=== PATIENT | female | born 1960 | race Caucasian/White ===

== ENCOUNTER → 2016-11-20 | Outpatient (CLI) | payer BC | LOC: FIMAGING 09:40 | PROVIDERS: ATTEND Orthopaedic Surgery | DX: Z01.818 Encounter for other preprocedural examination (principal); M17.12 Unilateral primary osteoarthritis, left knee; M25.462 Effusion, left knee ==

== ENCOUNTER 2016-12-04 06:52 | Observation (INO) | payer BC ==
[~2016-12-04 06:52] MED LIST: ACETAMINOPHEN 325 MG TAB PO ONE; CEFAZOLIN 2 GM/DEXTR 100 ML IV ONE; CHLORHEXIDINE GLUC HIBICLENS 118 ML BTL TP ONE; DEXAMETHASONE 4 MG/ML VIAL IVP ONE; FAMOTIDINE 20 MG TAB PO ONE; ROPI/epiNEPH/KETOROLAC JOINT COCKTAIL IU ONE; TRANEXAMIC ACID 3,000 MG in NS 50 ML IRR ONE
[2016-12-04] MEDS ORDERED: LIDOCAINE 2% 5 ML SDV ONE (07:20)
[2016-12-04] MEDS ORDERED: TRANEXAMIC ACID 3,000 MG/50 ML BAG IRR ONE (07:30)
[2016-12-04] MEDS ORDERED: SKIN ADHESIVE (DERMABOND) 1 EACH TP ONE (07:30)
[2016-12-04] MEDS ORDERED: VANCOMYCIN 1 GM VIAL IV ONE (07:30)
[2016-12-04] MEDS ORDERED: MIDAZOLAM 2 MG/2 ML VIAL ONE (09:07)
[2016-12-04] MEDS ORDERED: fentaNYL 100 MCG/2 ML INJ ONE ×3 (09:10→10:57)
[2016-12-04] MEDS ORDERED: PROPOFOL/EMULSION 500 MG/50 ML BOTTLE IV ONE ×2 (09:11→10:05)
[2016-12-04] MEDS ORDERED: LACTULOSE 20 GM/30 ML UDCUP PO PRN (10:50)
[2016-12-04] MEDS ORDERED: TEMAZEPAM 15 MG CAP PO PRN (10:50)
[2016-12-04] MEDS ORDERED: DIPHENOXYLATE/ATROPINE LOMOTIL 1 TAB PO PRN (10:50)
[2016-12-04] MEDS ORDERED: POLYETHYLENE GLYCOL 3350 17 GM PKT PO PRN (10:50)
[2016-12-04] MEDS ORDERED: PROMETHAZINE HCL 25 MG SUPPR PR PRN (10:50)
[2016-12-04] MEDS ORDERED: diphenhydrAMINE 25 MG CAP PO PRN (10:50)
[2016-12-04] MEDS ORDERED: oxyCODONE IR 5 MG TAB PO PRN (10:50)
[2016-12-04] MEDS ORDERED: CYCLOBENZAPRINE 10 MG TAB PO PRN (10:50)
[2016-12-04] MEDS ORDERED: BISACODYL 10 MG SUPP PR PRN (10:50)
[2016-12-04] MEDS ORDERED: PHARMACY PAIN CONSULT 1 EA MISC PRN (10:50)
[2016-12-04] MEDS ORDERED: METOCLOPRAMIDE 10 MG/2 ML VIAL IVP PRN (10:50)
[2016-12-04] MEDS ORDERED: MAGNESIUM HYDROXIDE 30 ML UDCUP PO PRN (10:50)
[2016-12-04] MEDS ORDERED: ONDANSETRON 4 MG/2 ML VIAL IVP PRN (10:50)
[2016-12-04] MEDS ORDERED: ONDANSETRON DISINTEGRATING 4 MG TAB PO PRN (10:50)
--- NOTE | 2016-12-04 10:50 | POSTOPPROG ---
Post Op Note Date of Operation: 12/04/16 Surgeon: Vick Hansen Electronic Assembler Group Leader: denys hansen Anesthesiologist: dr. alvares Anesthesia: Spinal, Other (Specify) (adductor canal block) Pre-op Diagnosis: left knee OA Post-op Diagnosis: same Indication: left knee pain due to OA that failed conservative measures Procedure: L medial partial knee arthroplasty robot assisted Findings: severe medial knee OA Inf/Abcess present in the surg proc area at time of surgery?: No EBL: 50-100
[2016-12-04] MEDS ORDERED: LR 1,000 ML IV SCH (11:00)
[2016-12-04] MEDS ORDERED: ONDANSETRON 4 MG/2 ML VIAL ONE (11:02)
[2016-12-04] MEDS ORDERED: DEXAMETHASONE 4 MG/ML VIAL ONE (11:02)
[2016-12-04] MEDS ORDERED: PROMETHAZINE HCL 25 MG/ML INJ ONE (11:25)
[2016-12-04] MEDS: ACETAMINOPHEN 325 MG TAB PO SCH ×3 (17:35→22:45)
[2016-12-04] MEDS: ceFAZolin 2 GM/DEXTROSE 100 ML IV SCH ×2 (17:46→20:30)
--- NOTE | 2016-12-04 19:37 | GOP ---
[f rep st] OPERATIVE REPORT DATE OF OPERATION: 12/04/2016 SURGEON: Sylwia Hernandez MD HAND GLUER AND SLICER: Geneva Hernandez PA-C. ANESTHESIA: Spinal. PREOPERATIVE DIAGNOSIS: Left knee osteoarthritis. POSTOPERATIVE DIAGNOSIS: Left knee osteoarthritis. PROCEDURE PERFORMED: FINDINGS: ESTIMATED BLOOD LOSS: 30 cc. INDICATIONS: This is a 56-year-old female with progressive pain of the left knee unresponsive to co nservative care. Risks and benefits of surgical intervention were explained in detail. DESCRIPTION OF PROCEDURE: The patient was brought to the operating room and placed on the table in supine position. Spinal anesthesia was induced without difficulty. A pneumatic tourniquet was appl ied about the left proximal thigh and the leg was prepped and draped in sterile fashion. Attention was turned first to the distal aspect of the left femur. At 3 cm proximal to the lateral rise of th e femur, 2 percutaneous half pins were placed for fixation of the femoral array. In a similar fashi on, 2 pins were placed anterolateral on the tibia for fixation of the tibial array. External land m arking and registration of the hip center was performed without difficulty. After exsanguination by elevation, the tourniquet was inflated to 250 mmHg. Incision was made from the tibial tuberosity to the superior pole of the patella. Dissection was ca rried out through the subcutaneous tissue to the deep fascia using Bovie electrocautery for hemostas is. Medial parapatellar arthrotomy was carried out to the superior pole of the patella. The medial collateral ligament was elevated and the infrapatellar fat pad was resected. Internal femoral and tibial registration was carried out without difficulty and the femoral and tibial checkpoints were p laced and verified for accuracy. Attention was turned to the femur. The foot print for the size 4 femoral component was cut with the 6 mm bur using the Flukle robotic system and verified for accuracy against the CT based plan. The hol e was cut for the femoral post. In a similar fashion, the 6 mm bur was used to cut the foot print fo r the size 4 tibial component using the ERIK system and verified for accuracy against the CT based pl an. Attention was turned to the posterior aspect of the knee and remnants of the medial meniscus were ex cised. The posterior capsule was injected with ropivacaine, epinephrine and Toradol. Trial reducti on was carried out and there was excellent range of motion, alignment and stability using the size 4 femoral component and the size 4 tibial component. All trials were then removed. The joint was thoroughly irrigated and carefully dried. One package of cement and 1 gram of vancomycin were mixed in the vacuum mixer and placed on the fixation surface s of all components. The components were implanted and all excess cement was thoroughly removed. Im plant placement was verified against the CT view plan and found to be excellent. The tourniquet was deflated and all bleeders were coagulated. The wound was thoroughly irrigated an d closed using interrupted sutures of 2-0 Vicryl for the joint capsule. The subcu was closed with 3 -0 Vicryl and the skin with 4-0 Monocryl. Dermabond and Steri-Strips were applied, followed by a co mpressive dressing. The patient was then moved from the operating room to the recovery room in good condition, having tolerated the procedure well. PROCEDURE: Left medial compartment partial knee replacement with computer navigation and robotics. CASE CLASSIFICATION: Clean. /[id number]/MODL
[2016-12-04] MEDS: SENNOSIDES/DOCUSATE SODIUM TAB PO SCH (20:27)
[2016-12-04] MEDS: FAMOTIDINE 20 MG TAB PO SCH (20:27)
[2016-12-04] MEDS: ASPIRIN 325 MG TAB PO SCH (22:45)
[2016-12-05 05:16] LABS: HEMATOCRIT 38.4 % (38.0-47.0)
[2016-12-05] MEDS: ACETAMINOPHEN 325 MG TAB PO SCH (06:24)
[2016-12-05 07:11] VITALS: BP 121/66; PULSE 54; RESP 12; TEMP 98; O2SAT 91
[2016-12-05] MEDS: FAMOTIDINE 20 MG TAB PO SCH (08:43)
[2016-12-05] MEDS: ASPIRIN 325 MG TAB PO SCH (08:43)
[2016-12-05] MEDS: SENNOSIDES/DOCUSATE SODIUM TAB PO SCH (08:43)
--- NOTE | 2016-12-05 09:45 | SOAPPROG ---
SOAP Progress Note Assessment/Plan: Assessment: Sandi is doing well today POD 1 s/p L medial partial knee arthroplasty 1. pain management: pain is well managed by oral pain medications 2. VTE ppx: recommend aspirin daily and JUSTINE Kincaids 3. anemia: level expected initially postop. asymptomatic, continue to monitor 4. D/c to home pending release from PT. Plan: 12/05/16 09:41 Subjective: Sandi is doing well today, denies SOB, chest pain and N/V. Objective: Vital Signs Temp Pulse Resp BP Pulse Ox 36.6 C 54 L 12 121/66 H 91 L 12/05/16 07:09 12/05/16 07:09 12/05/16 07:09 12/05/16 07:09 12/05/16 07:09 Laboratory Results 12/05/16 04:16 12/04/16 12/05/16 12/06/16 05:59 05:59 06:59 Intake Total 3600 Output Total 1975 Balance 1625 LLE: incision dressing is clean and dry, NVI, pf/df ICD10 Worksheet Patient Problems: Problems Problem Status Onset Primary localized osteoarthritis of left knee Acute
== END 2016-12-05 10:52 | disposition home or self-care (01) ==
LOC: F3N 06:52 → INTOOBSV 06:52 → F3N 13:21
PROVIDERS: ADMIT Orthopaedic Surgery; ATTEND Orthopaedic Surgery
PROC: 8E0YXBG Computer Assisted Procedure of Lower Extremity, With Computerized Tomography (ICD-10-PCS; principal; 2016-12-04 09:15)
PROC: 8E0Y4CZ Robotic Assisted Procedure of Lower Extremity, Percutaneous Endoscopic Approach (ICD-10-PCS; principal; 2016-12-04 09:15)
PROC: 0SRD0JZ Replacement of Left Knee Joint with Synthetic Substitute, Open Approach (ICD-10-PCS; principal; 2016-12-04 09:15)
DX: M17.12 Unilateral primary osteoarthritis, left knee (principal)
CPT/HCPCS: 27446; 73560; 97110; 97116; 97161; 97165; 97530; G0378; G8978; G8979; C1713; J0171; J0690; J1100; J1885; J2250; J2405; J2550; J2704; J2795; J3010; J3370

== ENCOUNTER 2017-05-16 12:17 | Observation (INO) | payer BC ==
[2017-05-16] MEDS ORDERED: NS 1,000 ML IV ONE (12:27)
[2017-05-16] MEDS ORDERED: ONDANSETRON 4 MG/2 ML VIAL ONE (12:31)
--- NOTE | 2017-05-16 12:32 | CPEKG ---
Heart Rate: 75 RR Interval: 800 P-R Interval: 148 QRSD Interval: 84 QT Interval: 416 QTC Interval: 465 P Butte: 65 QRS [place]: -17 T Wave [place]: 42 EKG Severity - ABNORMAL ECG - EKG Impression: SINUS RHYTHM EKG Impression: LEFT ATRIAL ABNORMALITY EKG Impression: ABNRM R PROG, CONSIDER ASMI OR LEAD PLACEMENT Electronically Signed By: Delta Meza 17-May-2017 16:25:53
[2017-05-16 12:33] LABS: % IMMATURE GRANULYOCYTES 0.4 % (0.0-1.1); ABSOLUTE IMMATURE GRANULOCYTES 0.05 10^3/uL (0.00-0.10); ADD DIFF? NO; ADD MORPH? NO; ADD SCAN? NO; ATYPICAL LYMPHOCYTE FLAG 10 (0-99); FRAGMENT RBC FLAG 0 (0-99); HEMATOCRIT 43.7 % (38.0-47.0); HEMOGLOBIN 15.3 g/dL (12.6-16.3); LEFT SHIFT FLG 0 (0-99); LIPEMIA HEMOLYSIS FLAG 90 (0-99); MEAN CELL HEMOGLOBIN 29.7 pg (27.9-34.1); MEAN CELL VOLUME 84.9 fL (81.5-99.8); MEAN PLATELET VOLUME 10.9 fL (8.7-11.7); PLATELET CLUMPS FLAG 0 (0-99); PLATELET COUNT 344 10^3/uL (150-400); RED BLOOD CELL COUNT 5.15 10^6/uL (4.18-5.33)
[2017-05-16] MEDS ORDERED: ONDANSETRON 4 MG/2 ML VIAL IVP ONE ×2 (12:36→12:52)
[2017-05-16] MEDS ORDERED: PROMETHAZINE HCL 25 MG/ML INJ IVP ONE (12:52)
[2017-05-16 13:01] LABS: CREATINE KINASE-MB FRACTION 1.01 ng/mL (0.00-4.55); TROPONIN I < 0.012 ng/mL (0.000-0.034)
[2017-05-16 13:08] LABS: ANION GAP 18 mEq/L (8-16); CALCIUM 10.4 mg/dL (8.5-10.4); CARBON DIOXIDE 17 mEq/l (22-31); CHLORIDE 105 mEq/L (97-110); CREATININE 0.9 mg/dL (0.6-1.0); GLOMERULAR FILTRATION RATE > 60; GLUCOSE 155 mg/dL (70-100); SODIUM 140 mEq/L (134-144)
--- NOTE | 2017-05-16 13:23 | EDPHY ---
H & P Time Seen by Provider: 05/16/17 12:28 HPI/ROS: HPI Vomiting, fainting. 56-year-old female by private vehicle with family. Patient presents after fainting and vomiting. She went to [employer] as usual on Wednesday morning. She and family then went to a restaurant. As they were leaving the restaurant in after she had eaten a full meal she stated that she started feeling weak and lightheaded. They got her into the back of their car. She looked pale according to family. She then had a syncopal event where her mouth opened and her eyes rolled back. She was unresponsive according to family. This lasted for about 5-10 seconds. She then started to arouse and had 2 episodes of nonbilious, nonbloody vomiting. The patient denies any associated sudden-onset headache, shortness of breath, chest pain, palpitations. No loss of sensation or focal weakness in her extremities. She does describe having associated tingling in both hands and both feet prior to the event. She describes having generalized weakness at this time as well. ROS: Constitutional: No fever, no chills. As above. Eyes: No discharge. No changes in vision. ENT: No sore throat. No nasal congestion or rhinorrhea. Respiratory: No cough. No shortness of breath. Cardiac: No chest pain, no palpitations. Gastrointestinal: No abdominal pain, no vomiting, no diarrhea. Genitourinary: No hematuria. No dysuria or increased frequency with urination. Musculoskeletal: No back pain. No neck pain. No myalgias or arthralgias. Skin: No rashes. Neurological: No headache. No focal weakness or altered sensation. Past medical history: Left knee surgery. Back surgery. Social history: No alcohol. No smoking. Here with family. Physical Exam: General Appearance: Alert, no distress. Mildly diaphoretic. Pale. This patient is responding to questions appropriately and in full sentences. This patient appears well-hydrated and well-nourished. Eyes: Pupils equal and round no pallor or injection. No lid edema, erythema or injection. No nystagmus. No photophobia. ENT, Mouth: Mucous membranes are moist. The pharyngeal tissues are unremarkable. No edema or swelling. No asymmetry suggestive of abscess. No erythema or exudates. No tongue lacerations or abrasions. Respiratory: There are no retractions, lungs are clear to auscultation with good air movement bilaterally. Cardiovascular: Regular rate and rhythm. No murmur. Gastrointestinal: Abdomen is soft and nontender, no masses, bowel sounds normal. No focal tenderness at McBurney's point. No Arias sign. Neurological: Motor sensory function is grossly intact. Cranial nerves are normal. Cerebellar function normal. Skin: No rashes. Cool and clammy to the touch. Musculoskeletal: Neck is supple and nontender. Extremities are symmetrical. All joints range without pain or impingement. Psychiatric: No agitation. No depression. Database: EKG: EKG time is 12:29 p.m.; EKG shows a narrow complex normal sinus rhythm with a ventricular rate of 75. The CO, QRS, QT intervals are within normal limits. There are no ST-T wave changes indicative of ischemic or injury pattern. No evidence of right heart strain. No evidence of WPW, hypertrophic cardiomyopathy , Brugada syndrome. Interpreted by me. Imaging: CT head without contrast: No acute pathology. Results were discussed with staff radiologist Dr. Wilfrido Bettencourt. Procedures: Emergency department course: IV placed. She was placed on a tool dispatcher. EKG performed. She was started on IV normal saline with 1 L to be given over the next hour. Vital signs were reviewed and are normal. She is afebrile. She was given 4 mg of Zofran IV initially for nausea. She was sent for appropriate imaging. While in CT, she had another episode of vomiting. She was given 4 mg of IV Zofran 6.25 mg of IV Phenergan. 1:30 p.m., patient re-evaluated. Vital signs reviewed and are normal. Repeat neurologic exam is nonfocal. I discussed the results of her diagnostic tests and imaging with her and family. She states that she is still feeling generalized weakness. She is still cool and clammy to the touch. Plan will be to admit her for observation to our hospitalist service. 2:00 p.m., spoke with hospitalist. Patient accepted for admission to telemetry observation under the care of Dr. Roberto Coburn. Patient will be transferred by ambulance. Patient's remaining emergency department course under my care has been uneventful. She was transferred in stable condition. Differential Diagnosis: The differential diagnosis on this patient includes but is not limited to vasovagal syncope. Acute coronary syndrome, subarachnoid hemorrhage, CVA, pulmonary embolism, arrhythmia, seizure unlikely. This represents a partial list of diagnoses considered. These considerations are based on history, physical exam, past history, reassessment and diagnostic testing. Smoking Status: Never smoked Constitutional: Initial Vital Signs Temperature (C) 36.2 C 05/16/17 12:23 Heart Rate 80 05/16/17 12:23 Respiratory Rate 18 05/16/17 12:23 Blood Pressure 112/71 05/16/17 12:23 O2 Sat (%) 95 05/16/17 12:23 O2 Delivery Mode Nasal Cannula O2 (L/minute) 2 Allergies/Adverse Reactions: codeine Allergy (Verified 05/16/17 12:23) Home Medications: Medication Instructions Recorded NK [No Known Home Meds] 05/16/17 Medical Decision Making - Diagnostics Imaging Results: Imaging Impressions Head CT 05/16/17 12:28 Impression: There is no acute abnormality identified on this unenhanced CT evaluation. If there is further clinical concern regarding the patient's symptoms, MR imaging is suggested, if not otherwise contraindicated. Findings were discussed with Betty Boucher MD at 13:38, on 05/16/2017. - Data Points Laboratory Results: Laboratory Results 05/16/17 12:25 05/16/17 12:25 05/16/17 05/16/17 12:25 12:25 WBC 11.57 10^3/uL H 10^3/uL (3.80-9.50) RBC 5.15 10^6/uL 10^6/uL (4.18-5.33) Hgb 15.3 g/dL g/dL (12.6-16.3) Hct 43.7 % % (38.0-47.0) MCV 84.9 fL fL (81.5-99.8) MCH 29.7 pg pg (27.9-34.1) MCHC 35.0 g/dL g/dL (32.4-36.7) RDW 12.0 % % (11.5-15.2) Plt Count 344 10^3/uL 10^3/uL (150-400) MPV 10.9 fL fL (8.7-11.7) Neut % (Auto) 44.2 % % (39.3-74.2) Lymph % (Auto) 48.0 % H % (15.0-45.0) [place] % (Auto) 5.7 % % (4.5-13.0) Eos % (Auto) 1.0 % % (0.6-7.6) Baso % (Auto) 0.7 % % (0.3-1.7) Nucleat RBC Rel Count 0.0 % % (0.0-0.2) Absolute Neuts (auto) 5.12 10^3/uL 10^3/uL (1.70-6.50) Absolute Lymphs (auto) 5.55 10^3/uL H 10^3/uL (1.00-3.00) Absolute Monos (auto) 0.66 10^3/uL 10^3/uL (0.30-0.80) Absolute Eos (auto) 0.11 10^3/uL 10^3/uL (0.03-0.40) Absolute Basos (auto) 0.08 10^3/uL 10^3/uL (0.02-0.10) Absolute Nucleated RBC 0.00 10^3/uL 10^3/uL (0-0.01) Immature Gran % 0.4 % % (0.0-1.1) Immature Gran # 0.05 10^3/uL 10^3/uL (0.00-0.10) Sodium 140 mEq/L mEq/L (134-144) Potassium 4.0 mEq/L mEq/L (3.5-5.2) Chloride 105 mEq/L mEq/L (97-110) Carbon Dioxide 17 mEq/l L mEq/l (22-31) Anion Gap 18 mEq/L H mEq/L (8-16) BUN 19 mg/dL mg/dL (7-23) Creatinine 0.9 mg/dL mg/dL (0.6-1.0) Estimated GFR > 60 Glucose 155 mg/dL H mg/dL (70-100) Calcium 10.4 mg/dL mg/dL (8.5-10.4) Creatine Kinase 75 IU/L IU/L (0-156) CK-MB (CK-2) Fraction 1.01 ng/mL ng/mL (0.00-4.55) Troponin I < 0.012 ng/mL ng/mL (0.000-0.034) Medications Given: Discontinued Medications Sodium Chloride (Ns) 1,000 mls @ 0 mls/hr IV EDNOW ONE; Wide Open PRN Reason: Protocol Stop: 05/16/17 12:28 Last Admin: 05/16/17 12:37 Dose: 1,000 mls Ondansetron HCl (Zofran) 4 mg IVP EDNOW ONE Stop: 05/16/17 12:37 Last Admin: 05/16/17 12:38 Dose: 4 mg Ondansetron HCl (Zofran) 4 mg IVP EDNOW ONE Stop: 05/16/17 12:53 Last Admin: 05/16/17 13:01 Dose: 4 mg Promethazine HCl (Phenergan) 6.25 mg IVP EDNOW ONE Stop: 05/16/17 12:53 Last Admin: 05/16/17 13:03 Dose: 6.25 mg Departure - Departure Disposition: [facility] Acute Clinical Impression: Syncope, Vomiting
[2017-05-16] MEDS ORDERED: ONDANSETRON DISINTEGRATING 4 MG TAB PO PRN (16:25)
[2017-05-16] MEDS ORDERED: ONDANSETRON 4 MG/2 ML VIAL IVP PRN (16:25)
[2017-05-16] MEDS ORDERED: ACETAMINOPHEN 325 MG TAB PO PRN (16:25)
--- NOTE | 2017-05-16 18:02 | GHP ---
[f rep st] HISTORY AND PHYSICAL DATE OF ADMISSION: 05/16/2017 HISTORY OF PRESENT ILLNESS: The patient is a pleasant 56-year-old female with minimal past medical history, who presents with a syncopal episode today. She was in taoist. Then she went for a meal. She had chicken and waffles, a pretty heavy meal for her. She was sitting in the sun. She had 1 m imosa during the meal. Subsequently she sat up, and she felt lightheaded and dizzy. She sat down o n the curb, put her head between her legs, and still continued to feel weak. She vomited and had a syncopal episode. Friends who were present note that her eyes rolled back in her head. There was n o seizure activity. She did not have incontinence. She did not have chest pain. She was not in sh ortness of breath when she came to. She continued to have some nausea. She has a family history of coronary disease in people in their 50s. She does not have any known co ronary disease nor any exertional anginal symptoms. She had an outpatient workup prior to a knee sc ope, although it is unclear what this entailed earlier this year. She has been told she has hyperli pidemia and prescribed a statin, but she did not fill it. She is a nonsmoker. Does not have hypert ension or diabetes. She has rare palpitations. No PND, orthopnea, or lower extremity edema. No fever, chills, diarrhea. REVIEW OF SYSTEMS: Complete 10-point review of systems conducted, negative except as noted in the H PI. PAST MEDICAL HISTORY: Hyperlipidemia and orthopedic issues. ALLERGIES: Codeine. MEDICATIONS: Prescribed medicines are atorvastatin, but she never filled it. Takes no other prescr iption medicine. SOCIAL HISTORY: No tobacco, rare alcohol. FAMILY HISTORY: Notable as in the HPI. PHYSICAL EXAMINATION: PRESENTING VITAL SIGNS: Temp 36.2, blood pressure 121/78, pulse 58, breathin g 18 times a minute, 98 on 2 L. GENERAL: No acute distress. HEENT: Sclerae anicteric. Oropharyn x clear. Mucous membranes moist. NECK: Supple without lymphadenopathy or JVD. LUNGS: Clear to a uscultation bilaterally. HEART: S1, S2 without murmurs. ABDOMEN: Soft, nontender, nondistended. LOWER EXTREMITIES: No edema. Calves are nontender. SKIN: Without rash. NEUROLOGIC: Nonfocal. LABORATORY DATA: White count 11.6, hematocrit 43.7, platelets are 344,000. Sodium 140, potassium 4 .0, chloride 105, bicarb 17, BUN 19, glucose 155. Troponin less than 0.012. Noncontrast head CT is unremarkable. EKG, interpreted by me, shows sinus at 75 with normal axis. There is a little bit o f an S-wave in lead I, and there is delayed R-wave progression although it is normal at V4. She has been told she had an abnormal EKG prior to this, but it is not entirely clear which. Notably there are no ST or T-wave changes on this EKG. I have discussed the case with . ASSESSMENT/PLAN: A 56-year-old female with syncope. 1. Syncope. This is almost certainly vasovagal syncope. I do notice her metabolic acidosis, but t here is nothing suggestive of an anginal or arrhythmic episode. We will follow her on telemetry. C ycle her troponins. 2. Anion gap acidosis of uncertain etiology. The patient otherwise appears well with stable vital signs, afebrile, nontender abdominal exam. Repeat in the morning. 3. Hyperlipidemia. I did encourage her to take statin. 4. Hyperglycemia. This is a nonfasting sample so a fasting sample would be indicated. DISPOSITION: Observation status. /[id number]/MODL
[2017-05-17 05:10] LABS: ANION GAP 9 mEq/L (8-16); CALCIUM 9.6 mg/dL (8.5-10.4); CARBON DIOXIDE 26 mEq/l (22-31); CHLORIDE 105 mEq/L (97-110); CHOLESTEROL 304 mg/dL (140-220); CHOLESTEROL/HDL RATIO 6.91 RATIO (1.00-4.44); CREATININE 0.9 mg/dL (0.6-1.0); GLOMERULAR FILTRATION RATE > 60; GLUCOSE 90 mg/dL (70-100); HIGH DENSITY LIPOPROTEIN 44 mg/dL (40-85); LDL/HDL RATIO 5.36 RATIO (1.00-3.22); LOW DENSITY LIPOPROTEIN 236 mg/dL (80-100); NON-HIGH DENSITY LIPOPROTEIN 260 mg/dL (90-129); POTASSIUM 4.6 mEq/L (3.5-5.2); SODIUM 140 mEq/L (134-144); TRIGLYCERIDE 121 mg/dL (35-135); VERY LOW DENSITY LIPOPROTEINS 24 mg/dL (8-25)
[2017-05-17 05:13] LABS: TROPONIN I < 0.012 ng/mL (0.000-0.034)
[2017-05-17 07:25] VITALS: BP 135/74; PULSE 58; RESP 16; TEMP 98; O2SAT 90
--- NOTE | 2017-05-17 09:12 | HOSPPROG ---
Hospitalist Progress Note Assessment/Plan: 56 yo F w vv syncope neg eval see dc summary Subjective: no events tele Objective: Vital Signs Temp Pulse Resp BP Pulse Ox 36.6 C 58 L 16 135/74 H 90 L 05/17/17 07:24 05/17/17 07:24 05/17/17 07:24 05/17/17 07:24 05/17/17 07:24 Laboratory Results 05/17/17 04:30 05/16/17 05/17/17 05/18/17 05:59 05:59 05:59 Intake Total 1000 Balance 1000 - Physical Exam Constitutional: no apparent distress, appears nourished Eyes: PERRL, anicteric sclera Ears, Nose, Mouth, Throat: moist mucous membranes, hearing normal Cardiovascular: regular rate and rhythym, no murmur, rub, or gallop Respiratory: no respiratory distress, no rales or rhonchi Gastrointestinal: normoactive bowel sounds, soft, non-tender abdomen Genitourinary: no bladder fullness, No adams in urethra Skin: warm, normal color Musculoskeletal: full muscle strength, no muscle tenderness Neurologic: AAOx3, sensation intact bilaterally Psychiatric: interacting appropriately ICD10 Worksheet Patient Problems: Problems Problem Status Onset Syncope Acute Vomiting Acute Primary localized osteoarthritis of left knee Acute
--- NOTE | 2017-05-17 10:10 | GDS ---
[f rep st] DISCHARGE SUMMARY HOSPITAL COURSE: Please see admission History and Physical by Dr. Roberto Coburn. The patient pres ented with a syncopal episode that sounded exactly like a vasovagal episode. She had a negative saniya luation here, including no heart murmur, negative troponins, nonischemic EKG, and no events on telem etry. She was discharged home. She has a history of hyperlipidemia, and she was prescribed a stati n, which she never started. I checked a fasting lipid panel showing LDL of 236, with an HDL of 44, and a total cholesterol of 304. She has a prescription for statin at home, and she will start that. I advised her to follow with her primary care physician in 4 to 6 weeks for repeat lipid panel. S he may need more aggressive lipid-lowering therapy. /[id number]/MODL
== END 2017-05-17 10:25 | disposition home or self-care (01) ==
LOC: CED 12:17 → CEDHOLD 13:55 → F3E 15:29
PROVIDERS: ADMIT Internal Medicine; ATTEND Internal Medicine
DX: R55 Syncope and collapse (principal); R11.10 Vomiting, unspecified; E78.5 Hyperlipidemia, unspecified; M17.12 Unilateral primary osteoarthritis, left knee
CPT/HCPCS: 70450; 93005; G0378; 80048-PO; 82550-PO; 82553-PO; 84484-PO; 85025-PO; 96374; J2405; J2550